=== PATIENT | female | born 1970 ===

== ENCOUNTER 2017-08-24 09:01 | Emergency (ER) | payer BC ==
--- NOTE | 2017-08-24 09:50 | C.PDOC ---
History Of Present Illness 47 y/o healthy female c/o dry cough, myalgia, cp, from mid June (flu like symptoms); seen by pmd in Jul and took a z-dalia. pt reports symptoms not better after zpak, getting worse, with pain in right side back all the time, worse with supine position, temp to 101 2 weeks ago, fatigue, persistent cough and so with exertion. pt seen by pmd last wednesday and started on medrol dose dalia and bactrim and reports no improvement in symptoms. 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 pt not on ocp, no recent surgery or immobilization. pt reports hx asthma/rad, using inhaler with no improvement, denies wheezing. Time Seen by Provider: 08/24/17 09:28 Chief Complaint (Nursing): Shortness Of Breath History Per: Patient History/Exam Limitations: no limitations Onset/Duration Of Symptoms: Days (6 weeks) Current Symptoms Are (Timing): Worse Initiating Event: Upper Respiratory Illness Exacerbating Factor(s): Exertion, Laying Flat Current Respiratory Medications: Other (medrol dose dalia and bactrim) Associated Symptoms: Fever, Chest Pain, Light-headedness. denies: Bloody Cough , Leg/Calf Pain, Ankle/Leg Swelling Reports Recently: Treated By A Physician Recent travel outside of the [place]: No Past Medical History Vital Signs: Last Vital Signs Temp 98.2 F 08/24/17 15:20 Pulse 70 08/24/17 15:20 Resp 18 08/24/17 15:20 BP 123/82 08/24/17 15:20 Pulse Ox 97 08/24/17 15:20 - Medical History PMH: Asthma Family History: States: Unknown Family Hx - Social History Hx Tobacco Use: Yes (quit 12 yrs ago) Hx Alcohol Use: No Hx Substance Use: No - Immunization History Hx Tetanus Toxoid Vaccination: No Hx Influenza Vaccination: No Hx Pneumococcal Vaccination: No Review Of Systems Constitutional: Positive for: Fever Cardiovascular: Positive for: Chest Pain, Light Headedness. Negative for: Palpitations Respiratory: Positive for: Cough, Shortness of Breath, SOB with Excertion. Negative for: Wheezing Gastrointestinal: Negative for: Nausea, Vomiting, Abdominal Pain Genitourinary: Negative for: Dysuria Musculoskeletal: Negative for: Leg Pain Skin: Negative for: Rash Neurological: Negative for: Weakness, Numbness Physical Exam - Physical Exam Appears: Non-toxic, No Acute Distress Skin: Warm, Dry Head: Atraumatic, Normacephalic Eye(s): bilateral: Normal Inspection Ear(s): Bilateral: Normal Nose: No Discharge Oral Mucosa: Moist Tongue: Normal Appearing Throat: No Erythema, No Exudate Neck: Supple Chest: No Tenderness Cardiovascular: Rhythm Regular, No Murmur Respiratory: Normal Breath Sounds, No Accessory Muscle Use, No Rales, No Rhonchi , No Stridor, No Wheezing Gastrointestinal/Abdominal: Soft, No Tenderness Extremity: No Tenderness, No Pedal Edema, No Calf Tenderness, Other (neg bilateral homans) Neurological/Psych: Oriented x3, Normal Speech, Normal Cognition, Normal Motor, Normal Sensation ED Course And Treatment - Laboratory Results Result Diagrams: 08/24/17 10:00 08/24/17 10:00 Urine POC: Negative ECG Rhythm: Sinus Rhythm Interpretation Of ECG: low voltage, no r wave progression O2 Sat by Pulse Oximetry: 97 Pulse Ox Interpretation: Normal Medical Decision Making Medical Decision Making: pt with cough, cp, sob for almost 6 week, worsening. plan is cxr, labs, inc ddimer and trop. will re-eval. VQ scan Results: ADDENDUM: 11.2 mCi Xe-133 Gas. [ Addendum Report Added by Seymour Flores MD at 08/24/2017 14:24:28 ] COMPARISON: August 24, 2017. TECHNIQUE: 11.2 mCi technetium 99-m Xe-133 Gas. 3.4 mCI technetium 99-m MAA administered intravenously. FINDINGS: VENTILATION COMPONENT: Normal. PERFUSION COMPONENT: Heterogeneous distribution of radionuclide. No geographic, segmental, lobar abnormalities apparent on the present examination. IMPRESSION: Low probability ventilation perfusion scan for pulmonary embolism. 3"00 pm results of tests discussed with pt; advised to use inhaler, complete current medications, f/u surgeon chief. Disposition Counseled Patient/Family Regarding: Studies Performed, Diagnosis, Need For Followup, Rx Given - Disposition Referrals: West Perkins MD [Staff Provider] - Shaik Birch MD [Staff Provider] - Disposition: HOME/ ROUTINE Disposition Time: 15:11 Condition: STABLE Additional Instructions: Please use inhaler 2 puffs every 6 hours. FOllow up with PMD and Dr Perkins, surgeon chief. Get flu vaccine. Finish your medications. Return to ER for any worse symptoms. Recommend better self care- healthy diet, increased sleep. Prescriptions: Albuterol HFA [Ventolin HFA 90 mcg/actuation (8 g)] 2 puff IH Q6 #1 inhaler Instructions: Dyspnea (ED) Forms: [facility] (Spanish), General Discharge Instructions - Clinical Impression Clinical Impression: Dyspnea
[2017-08-24 10:15] LABS: BASO # 0.1 K/uL (0.0-0.2); BASO % 0.7 % (0.0-2.0); EOS # 0.2 K/uL (0.0-0.7); EOS % 2.2 % (0.0-4.0); HEMATOCRIT 41.9 % (34.0-47.0); LYMPH % 26.4 % (20.0-40.0); MEAN CELL VOLUME 89.2 fL (81.0-99.0); MEAN CORPUSCULAR HGB CONC 33.6 g/dL (33.0-37.0); MEAN PLATELET VOLUME 8.5 fL (7.2-11.7); MONO # 0.9 K/uL (0.0-0.8); MONO % 7.8 % (0.0-10.0); RED CELL DISTRIBUTION WIDTH 13.1 % (11.5-14.5); WHITE BLOOD COUNT 11.2 K/uL (4.8-10.8)
[2017-08-24 10:19] LABS: ALB/GLOB RATIO 1.2 (1.0-2.1); ALKALINE PHOSPHATASE 68 U/L (38-126); ALT/SGPT 30 U/L (9-52); AST/SGOT 21 U/L (14-36); BILIRUBIN,TOTAL 0.8 mg/dL (0.2-1.3); BLOOD UREA NITROGEN 13 mg/dL (7-17); CALCIUM 8.5 mg/dl (8.6-10.4); CARBON DIOXIDE 27 mmol/L (22-30); CHLORIDE 101 mmol/L (98-107); GFR AFRICAN-AMERICAN > 60; GLUCOSE,RANDOM 76 mg/dL (65-105); POTASSIUM 3.4 mmol/L (3.6-5.2); SODIUM 139 mmol/L (132-148)
[2017-08-24 10:21] LABS: RBC URINE < 1 /hpf (0-3); URINE BACTERIA RARE (<OCC); URINE BILIRUBIN NEGATIVE (NEGATIVE); URINE BLOOD NEGATIVE (NEGATIVE); URINE COLOR Yellow (YELLOW); URINE GLUCOSE (UA) NORMAL (Normal); URINE KETONE NEGATIVE (NEGATIVE); URINE LEUKOCYTE ESTERASE NEG Leu/uL (Negative); URINE PROTEIN NEGATIVE (NEGATIVE); URINE UROBILINOGEN NORMAL mg/dL (0.2-1.0); WBC URINE 4 /hpf (0-5)
--- NOTE | 2017-08-24 11:05 | RAD ---
HISTORY: cough right side back pain COMPARISON: None available. TECHNIQUE: Chest PA and lateral FINDINGS: LUNGS: No focal consolidation. Please note that chest x-ray has limited sensitivity for the detection of pulmonary masses. PLEURA: No significant pleural effusion identified. No definite pneumothorax . CARDIOVASCULAR: The cardiomediastinal silhouette appears within normal limits of size. OSSEOUS STRUCTURES: No acute osseous abnormality identified. VISUALIZED UPPER ABDOMEN: Unremarkable. OTHER FINDINGS: None. IMPRESSION: No focal consolidation, significant pleural effusion, or definite pneumothorax identified.
--- NOTE | 2017-08-24 14:10 | NM ---
COMPARISON: August 24, 2017. TECHNIQUE: 11.2 mCi technetium 99-m Xe-133 Gas. 3.4 mCI technetium 99-m MAA administered intravenously. FINDINGS: VENTILATION COMPONENT: Normal. PERFUSION COMPONENT: Heterogeneous distribution of radionuclide. No geographic, segmental, lobar abnormalities apparent on the present examination. IMPRESSION: Low probability ventilation perfusion scan for pulmonary embolism.
[2017-08-24 14:34] VITALS: RESP 18
[2017-08-24 14:54] VITALS: O2SAT 97
[2017-08-24 15:21] VITALS: BP 123/82; PULSE 70; TEMP 98.2
--- NOTE | 2017-08-30 19:09 | CARD ---
APPROVED REPORT EKG Measurement Heart [id number] <Conclusion> Normal sinus rhythm Low voltage QRS Cannot rule out Anterior infarct, age undetermined Abnormal ECG
== END 2017-08-24 15:21 | disposition home or self-care (01) ==
LOC: C.ER 09:01
DX: R06.00 Dyspnea, unspecified (principal)
CPT/HCPCS: 71020; 78582; 80053; 81001; 84484; 85025; 85378; 99285; A9558